=== PATIENT | female | born 1940 | race Caucasian/White ===

== ENCOUNTER 2019-01-15 06:56 | Inpatient (IN) ==
[2018-12-08 13:11] LABS: Basophils # (auto) 0.03 K/uL (0-0.2); Basophils % (auto) 0.6 %; Eosinophils # (auto) 0.29 K/uL (0-0.5); Eosinophils % (auto) 5.7 %; Hematocrit (blood only) 34.4 % (37-47); Hemoglobin 11.5 g/dL (12.0-16.0); Lymphocytes # (auto) 0.88 K/uL (1.2-3.4); Lymphocytes % (auto) 17.3 %; Mean Corpuscular Hemoglobin 30.3 pg (25-34); Mean Corpuscular Hgb Conc 33.4 g/dL (32-36); Mean Corpuscular Volume 90.5 fL (80-100); Mean Platelet Volume 11.1 fL (7.4-10.4); Monocytes # (auto) 0.49 K/uL (0.11-0.59); Monocytes % (auto) 9.6 %; Neutrophils % (auto) 66.8 %; Platelet Count 173 K/uL (130-400); RDW Coefficient of Variation 13.3 % (11.5-14.5); RDW Standard Deviation 43.8 fL (36.4-46.3); White Blood Count 5.09 K/uL (4.8-10.8)
[2018-12-08 13:25] LABS: Partial Thromboplastin Ratio 0.9; Partial Thromboplastin Time 24.2 Seconds (21.0-31.0); Prothrombin Time 10.4 Seconds (9.0-12.0)
[2018-12-08 13:52] LABS: BUN Creatinine Ratio 19.6 (10-20); Blood Urea Nitrogen 15 mg/dl (7-18); Calcium 9.5 mg/dl (8.5-10.1); Carbon Dioxide 25 mmol/L (21-32); Chloride 108 mmol/L (98-107); Est GFR (African American) 83.2; Est GFR (Non-African American) 71.8; Glucose 88 mg/dl (70-99); Potassium 3.6 mmol/L (3.5-5.1); Sodium 141 mmol/L (136-145)
[2018-12-08 14:38] LABS: Appearance Urine Clear (Clear); Bilirubin Urine Negative (Negative); Blood Urine Negative (Negative); Color Urine Dark Yellow; Glucose Urine UA Negative (Negative); Ketones Urine Negative (Negative); Leukocyte Esterase Urine Negative (Negative); Nitrite Urine Negative (Negative); Protein Urine Negative (Negative); Specific Gravity Urine 1.018 (1.000-1.030); Urobilinogen Urine Negative (Negative)
--- NOTE | 2018-12-28 10:31 | Anesthesiology Consultation ---
Date of Service December 28, 2018 Assessment & Plan (1) Encounter for pre-operative examination: Chart Review Chart Review: Acceptable Risk for Surgery and Patient NOT seen in Pre Admission Testing Consults Requested none History Surgery Operation Date: 01/15/19 10:25 Proposed Procedures p L4-L5 Decompression and Fusion, Possible L5-S1, Spinal Cord Mointoring - Inder Burrows DO Height/Weight Height: 5 ft Weight: 72.575 kg Allergies Allergy/AdvReac Type Severity Reaction Status Date / Time No Known Allergies Allergy Verified 12/25/18 08:32 Medications Home Medications Medication Instructions Recorded Confirmed Last Taken anastrozole 1 mg PO QAM 12/25/18 12/25/18 Unknown calcium carbonate-vitamin D3 1 tab PO QPM 12/25/18 12/25/18 Unknown [Calcium 600 + D(3)] cholecalciferol (vitamin D3) 1,000 unit PO QPM 12/25/18 12/25/18 Unknown [Vitamin D3] denosumab [Prolia] 60 mg SUBCUT UD 12/25/18 12/25/18 Unknown ferrous sulfate 325 mg PO QPM 12/25/18 12/25/18 Unknown ibuprofen-famotidine [Duexis] 1 tab PO BID 12/25/18 12/25/18 Unknown levothyroxine [Synthroid] 88 mcg PO QAM 12/25/18 12/25/18 12/25/18 multivitamin 1 cap PO QPM 12/25/18 12/25/18 Unknown omega 5-sby-dqp-fish oil [Fish Oil] 1 cap PO QPM 12/25/18 12/25/18 Unknown rosuvastatin [Crestor] 5 mg PO HS 12/25/18 12/25/18 Unknown vitamin B complex 1 cap PO QPM 12/25/18 12/25/18 Unknown Past Medical History Medical History Age related osteoporosis Arthritis Family history of reaction to anesthesia BROTHER - TROUBLE WITH INTUBATION High cholesterol History of breast cancer RIGHT Hypothyroid Pinched nerve L4-5 Spinal stenosis Past Family History Family History Brother Family history of reaction to anesthesia Son Family history of diabetes mellitus Other Family history of colon cancer Family history of colon cancer in father Past Surgical History Surgical History History of colonoscopy History of foot surgery RIGHT, PLATE AND 5 SCREWS History of kyphoplasty History of left cataract surgery History of lumpectomy RIGHT, WITH LYMPH NODES History of right cataract surgery Social History Smoking Status: Never smoker Do You Dip or Chew Tobacco: No Hx Alcohol Use: No Hx Substance Use: No substance use type: does not use Testing Laboratory Results 12/08/18 12:35 12/08/18 12:35 PT 10.4 Seconds (9.0-12.0) 12/08/18 12:35 INR 1.0 (0.9-1.1) 12/08/18 12:35 APTT 24.2 Seconds (21.0-31.0) 12/08/18 12:35 Urine Color Dark Yellow 12/08/18 12:35 Urine Appearance Clear (Clear) 12/08/18 12:35 Urine pH 5.0 (4.5-7.5) 12/08/18 12:35 Ur Specific [place] 1.018 (1.000-1.030) 12/08/18 12:35 Urine Protein Negative (Negative) 12/08/18 12:35 Urine Glucose (UA) Negative (Negative) 12/08/18 12:35 Urine Ketones Negative (Negative) 12/08/18 12:35 Urine Nitrite Negative (Negative) 12/08/18 12:35 Ur Leukocyte Esterase Negative (Negative) 12/08/18 12:35 Blood Type A Positive 12/08/18 12:34 Antibody Screen NEGATIVE 12/08/18 12:34 Electrocardiogram Date: 12/08/18 Findings: + NSR @ (72bpm) Chest X-Ray Date: 12/08/18 Findings: + NAD
[~2019-01-15 06:56] MED LIST: ACETAMINOPHEN 500 MG TAB PO SCH; CEFAZOLIN 1000MG 1,000 MG/7.5 ML SYR IV SCH; CeleBREX 200 MG CAP PO SCH; GABAPENTIN 300 MG CAP PO SCH; LR 15ML/HR IV SCH
[2019-01-15] MEDS ORDERED: HYDROmorphone INJ 2 MG/ML SYR/VIAL ONE ×2 (08:30→12:22)
[2019-01-15] MEDS ORDERED: fentaNYL citrate 100 MCG/2 ML VIAL ONE ×5 (08:30→11:21)
[2019-01-15] MEDS ORDERED: NEOSTIGMINE METHYLSULFATE 1 MG/ML 10ML VIAL ONE (08:35)
[2019-01-15] MEDS ORDERED: ONDANSETRON INJ 2 MG/ML 2 ML VIAL ONE (08:35)
[2019-01-15] MEDS ORDERED: DEXAMETHASONE SOD INJ 4 MG/ML VIAL ONE (08:35)
[2019-01-15] MEDS ORDERED: ROCURONIUM BROMIDE 10 MG/ML 5 ML VIAL ONE (08:35)
[2019-01-15] MEDS ORDERED: LIDOCAINE HCL 2% 2 ML VIAL/AMP(20MG/ML) INFIL ONE (08:35)
[2019-01-15] MEDS ORDERED: GLYCOPYRROLATE 0.2 MG/ML VIAL ONE (08:35)
[2019-01-15] MEDS ORDERED: PROPOFOL IV EMULSION 10 MG/ML 20 ML VIAL IV ONE (08:35)
[2019-01-15] MEDS ORDERED: PHENYLEPHRINE 100MCG/ML 5ML SYR IV PRN (08:42)
[2019-01-15] MEDS ORDERED: HYDROmorphone INJ 1 MG/ML SYRINGE IV PRN ×2 (08:42→15:48)
[2019-01-15] MEDS ORDERED: ePHEDrine sulfate 50 MG/ML AMP IV PRN (08:42)
[2019-01-15] MEDS ORDERED: ONDANSETRON INJ 2 MG/ML 2 ML VIAL IV PRN (08:42)
[2019-01-15] MEDS ORDERED: ATROPINE SULFATE 0.1 MG/ML 10ML SYR IV PRN (08:42)
[2019-01-15] MEDS ORDERED: LABETALOL HCL IV 5 MG/ML 20ML IV PRN (08:42)
--- NOTE | 2019-01-15 09:28 | History & Physical Bridge Note ---
Date of Service January 15, 2019 History & Physical Bridge Note I have examined the patient, reviewed the History & Physical and in the interval since the performance of the History & Physical I have noted the following changes of clinical significance: no changes noted
--- NOTE | 2019-01-15 09:30 | History & Physical Report ---
Date of Service January 15, 2019 Assessment & Plan (1) Spinal stenosis, lumbar region with neurogenic claudication: L4-L5 decompression and fusion possible L5-S1 Present on Admission?: Yes History of Present Illness Chief Complaint: Back and leg pain Primary Care Provider: NO PCP This is an 78-year-old female who presents with chronic persistent back and bilateral leg pain. After failing extensive course of nonoperative care she is here for surgical intervention. Allergies Allergy/AdvReac Type Severity Reaction Status Date / Time No Known Allergies Allergy Verified 01/15/19 08:09 Home Medications Home Medications Medication Instructions Recorded Confirmed Type anastrozole 1 mg PO QAM 12/25/18 01/15/19 History calcium carbonate-vitamin D3 1 tab PO QPM 12/25/18 01/15/19 History [Calcium 600 + D(3)] cholecalciferol (vitamin D3) 1,000 unit PO QPM 12/25/18 01/15/19 History [Vitamin D3] denosumab [Prolia] 60 mg SUBCUT UD 12/25/18 01/15/19 History ferrous sulfate 325 mg PO QPM 12/25/18 01/15/19 History ibuprofen-famotidine [Duexis] 1 tab PO BID 12/25/18 01/15/19 History levothyroxine [Synthroid] 88 mcg PO QAM 12/25/18 12/25/18 History multivitamin 1 cap PO QPM 12/25/18 01/15/19 History omega 4-cri-gft-fish oil [Fish Oil] 1 cap PO QPM 12/25/18 01/15/19 History rosuvastatin [Crestor] 5 mg PO HS 12/25/18 01/15/19 History vitamin B complex 1 cap PO QPM 12/25/18 01/15/19 History Past Med/Surg History Medical History Age related osteoporosis Arthritis High cholesterol History of breast cancer RIGHT Hypothyroid Pinched nerve L4-5 Spinal stenosis Surgical History Family history of reaction to anesthesia BROTHER - TROUBLE WITH INTUBATION History of colonoscopy History of foot surgery RIGHT, PLATE AND 5 SCREWS History of kyphoplasty History of left cataract surgery History of lumpectomy RIGHT, WITH LYMPH NODES History of right cataract surgery Family History Brother Family history of reaction to anesthesia Son Family history of diabetes mellitus Other Family history of colon cancer Family history of colon cancer in father Social History Preferred Language: Mauritanian Communication Ability: Effective Vehicle Cost Engineer Required: No Beliefs That Will Affect Care: None Current Living Situation: Spouse Other Information That Helps Us Care for You: No Feels Safe at Home: Yes Smoking Status: Never smoker Do You Dip or Chew Tobacco: No ; Hx Alcohol Use: No Hx Substance Use: No Physical Exam Physical Exam: Patient is alert and oriented neurologically intact. Results & Data Vital Signs (Past 12 Hours) Vital Signs Temp Pulse Resp BP Pulse Ox 01/15/19 08:20 36.8 C 75 18 185/78 H 98
[2019-01-15] MEDS ORDERED: BACITRACIN INJ 50,000 UNIT VIAL ONE (09:45)
[2019-01-15] MEDS ORDERED: EPINEPHrine INJ 1 MG/ML AMP ONE (09:48)
[2019-01-15] MEDS ORDERED: BUPIVACAINE 0.5 % 5 MG/1 ML MPF 30ML VIAL ONE (09:48)
[2019-01-15] MEDS ORDERED: BUPIVACAINE/EPINEPHRINE 0.5% MPF 1:200,000 30 ML VIAL ONE (09:55)
[2019-01-15] MEDS ORDERED: SUGAMMADEX SODIUM 200 MG/2 ML VIAL IV ONE (11:35)
[2019-01-15] MEDS ORDERED: BUPIVACAINE/EPINEPHRINE 0.5% MPF 1:200,000 10 ML VIAL INJ PRN (11:48)
[2019-01-15] MEDS ORDERED: FLOSEAL HEMOSTATIC MATRIX 10ML TOP ONE (11:53)
[2019-01-15] MEDS ORDERED: PHENYLEPHRINE 100MCG/ML 5ML SYR ONE (11:57)
[2019-01-15] MEDS ORDERED: PHENYLEPHRINE HCL 10 MG/ML VIAL ONE (11:57)
[2019-01-15] MEDS ORDERED: KETOROLAC 30 MG/ML VIAL ONE (11:57)
[2019-01-15] MEDS ORDERED: ePHEDrine sulfate 50 MG/ML AMP ONE (11:57)
[2019-01-15] MEDS ORDERED: ePHEDrine sulfate 50 MG/ML SYR ONE (11:57)
--- NOTE | 2019-01-15 12:00 | Operative Report ---
Post Operative Report Pre & Post Diagnosis Operation Date: 01/15/19 09:55 Pre-Op Diagnosis: Spondyloslisthesis, Lumbar Region with neurogenic claudication Post-Op Diagnosis: Same I identified the patient and participated in the time-out.: Yes Procedure Operation Date: 01/15/19 09:55 Actual Procedures #1 lumbar decompression with bilateral medial facetectomies and foraminotomies L3-4 L4-5. #2 posterior spinal fusion L4-5 per #3 placement posterior instrumentation L4-5. #4 interbody fusion L4-5 per #5 placement of peek cage 12 x 22 mm L4-5 per #6 placement of locally harvested morselized autograft in the posterior lateral gutters. #7 placement infuse collagen sponge master graft in the posterior lateral gutters and ostial amp and interbody space. Surgeon Inder Burrows, DO Portal Developer Ky Boogie Estimated Blood Loss 175 Findings See Below Patient is forefoot 11 inches tall weighing over 74 kg with a BMI in excess of 33. The patient's body habitus did add significant technical difficulty adding at least 40% increase in operative time. Specimens None Indications Patient presents with significant back and leg pain after failing extensive course of nonoperative care is here for the above-mentioned procedure. Description of Procedure Patient was met with identified and informed consent obtained. Patient was then taken to the operative suite underwent intubation placed in the prone position on the Srikanth table on top of the Andrae frame. All bony prominences well- padded eyes inspected to ensure no external pressure placed upon the peer at this point the lumbar spine was prepped and draped in normal sterile fashion. Sharp dissection with the assistance of Bovie cautery was performed down to and exposing the lamina and transverse process of L4 and L5 bilaterally. From a caudal to cephalad fashion complete laminectomy of L4 partial laminectomy of L3 was performed including bilateral medial facetectomies and foraminotomies addressing severe stenosis as well as a facet cyst on the right. After complete decompression pedicle screws were placed in L4 and L5 bilaterally with assistance of fluoroscopy the appropriate size tyrell placed. By way of a transforaminal approach on the right a complete discectomy was performed en dplates curetted to subcortical bleeding bone and a 12 x 22 mm peek cage filled with osteo-amp bone graft tapped in position. The rods were then locked in final position bilaterally. Transverse processes of L4 and L5 bur to subcortical bleeding bone. Infuse collagen sponge mass graft and local autograft placed in the posterior lateral gutters. 15 round NIC drain inserted. Incision was then closed with 1 Vicryl in the fascia 2-0 Vicryl substantially and 4 Monocryl for final skin closure. Steri-Strip sterile dressings placed. Patient will continue PACU stable condition. Please note Ky Boogie present all the entire procedure involved in patient positioning complex portions of the surgery and final skin closure. Lastly spinal cord monitoring was utilized that the procedure no changes noted. I attest to the content of the Intraoperative Record and any orders documented therein. Any exceptions are noted below.
[2019-01-15] MEDS: fentaNYL citrate 100 MCG/2 ML VIAL IV PRN ×2 (12:39→12:44)
--- NOTE | 2019-01-15 12:52 | Anesthesiology Progress Note ---
Date of Service January 15, 2019 Anesthesia Post Procedure Vital Signs Vital Signs: Temp Pulse Pulse Resp BP BP Pulse Ox 01/15/19 12:18 36.4 C L 63 14 125/54 L 99 01/15/19 08:20 36.8 C 75 18 185/78 H 98 Pain Intensity Right Leg: Pain Intensity: 2 Transfer of Care Handoff Completed per policy Notes Mental Status: alert / awake / arousable Patient Amnestic to Procedure: Yes Nausea / Vomiting: adequately controlled Pain: adequately controlled Airway Patency, RR, SpO2: stable & adequate BP & HR: stable & adequate Hydration State: stable & adequate Anesthetic Complications: no major complications apparent and Pt Satisfied with anesthetic care
--- NOTE | 2019-01-15 12:53 | Fluoroscopy Report ---
FL lumbar spine 2-3V HISTORY: 78 years-old Female L4-L5 DECOMPRESSION AND FUSION POSSIBLE L5-S1 status post decompression and fusion at L4-L5. COMPARISON: None available TECHNIQUE: 2 spot fluoroscopic images of the lumbar spine were obtained utilizing 18.5 seconds fluoro scopy time FINDINGS: Laminectomy with posterior interbody tyrell and screw fusion and discectomy changes at L4-L5. Satisfacto ry alignment. IMPRESSION: Fluoroscopic assistance as above The above report was generated using voice recognition software. It may contain grammatical, syntax o r spelling errors. Electronically signed by: Darin Childers M.D. 01/15/2019 12:51 PM
[2019-01-15] MEDS ORDERED: ESMOLOL HCL INJ 10 MG/ML 10ML VIAL IV ONE (13:02)
--- NOTE | 2019-01-15 14:41 | Internal Medicine Consult Note ---
Date of Consultation January 15, 2019 Assessment & Plan (1) Spinal stenosis, lumbar region with neurogenic claudication: (2) Status post lumbar spine surgery for decompression of spinal cord: -post-op spinal lumbar decompression and fusion by Dr. Burrows on 01/15/19 (#1 lumbar decompression with bilateral medial facetectomies and foraminotomies L3-4 L4-5. #2 posterior spinal fusion L4-5 per #3 placement posterior instrumentation L4-5. #4 interbody fusion L4-5 per #5 placement of peek cage 12 x 22 mm L4-5 per #6 placement of locally harvested morselized autograft in the posterior lateral gutters. #7 placement infuse collagen sponge master graft in the posterior lateral gutters and ostial amp and interbody space.) -NIC drain management as per orthopedics -monitor CBC -PT/OT -pain medications and antiemetics prn (3) Blurred vision: -This is a 78 year old female with history of Spondyloslisthesis, Lumbar Region with neurogenic claudication and post-op spinal lumbar decompression and fusion and while in the PACU had complains of blurred vision when looking to the right. When she looked to her environment to the right. this was when she had blurred vision after waking from the anesthesia -Patient seen and examined in the PACU by hospitalist. Pupils equal and reactive to light. Visual field testing was performed by hospitalist at bedside. Patient did not report of blurred vision while tracking the fingers of the hospitalist physician. When she looked to her right she feels that visual clarity is improving. Discussed with anesthesiologist at bedside, Dr. Boone that patient's recent anesthesia medications and anesthesia medication included phenylephrine and high dose of Neostigmine. Patient appears to have cranial nerve function intact. Pupils equal and reactive to light and accomodation. denies feeling dizzy or lightheadedness. No vomiting. No nausea -symptoms may be medication related -will continue to continue to monitor the patient closely -likely when further removed from surgical/anesthesia medications that patient's symptoms will continue to improve (4) Dyslipidemia: -recently started on crestor 5 mg qhs as outpatient -continue crestor (5) Hypothyroidism: -continue levothyroxine (6) History of breast cancer: -continue home dose anastrozole DVT prophylaxis: SCDs Ze [phone] is anesthesiologist Patient reports that her son is her primary care doctor My colleague: Dr. Ag will be following the patient starting on 01/16/19 History of Present Illness Reason for Consultation: Spondyloslisthesis, Lumbar Region with neurogenic claudication Post-op spinal lumbar decompression and fusion Blurred Vision Requesting Physician: Inder Burrows DO Attending Physician: Inder Burrows DO History of Present Illness This is a 78 year old female with history of Spondyloslisthesis, Lumbar Region with neurogenic claudication and post-op spinal lumbar decompression and fusion and while in the PACU had complains of blurred vision when looking to the right. When she looked to her environment to the right. this was when she had blurred v ision after waking from the anesthesia Patient seen and examined in the PACU by hospitalist. Pupils equal and reactive to light. Visual field testing was performed by hospitalist at bedside. Patient did not report of blurred vision while tracking the fingers of the hospitalist physician. When she looked to her right she feels that visual clarity is improving. Discussed with anesthesiologist at bedside, Dr. Boone that patient's recent anesthesia medications and anesthesia medication included phenylephrine and high dose of Neostigmine. Patient appears to have cranial nerve function intact. Pupils equal and reactive to light and accomodation. denies feeling dizzy or lightheadedness. No vomiting. No nausea Patient breathing on supplementary oxygen. Denies supplementary oxygen use at home. Denies chest pain. able to move upper extremities with 5/5 motor strength. Legs in SCDs. able to raise both legs slightly above the bed with some effort. NIC drain to the back with serosanguinous fluid Family History: mother with juan miguel history of atrial fibrillation and stroke Allergies: denies Allergies Allergy/AdvReac Type Severity Reaction Status Date / Time No Known Allergies Allergy Verified 01/15/19 08:09 Home Medications Home Medications Medication Instructions Recorded Confirmed Type anastrozole 1 mg PO QAM 12/25/18 01/15/19 History calcium carbonate-vitamin D3 1 tab PO QPM 12/25/18 01/15/19 History [Calcium 600 + D(3)] cholecalciferol (vitamin D3) 1,000 unit PO QPM 12/25/18 01/15/19 History [Vitamin D3] denosumab [Prolia] 60 mg SUBCUT UD 12/25/18 01/15/19 History ferrous sulfate 325 mg PO QPM 12/25/18 01/15/19 History ibuprofen-famotidine [Duexis] 1 tab PO BID 12/25/18 01/15/19 History levothyroxine [Synthroid] 88 mcg PO QAM 12/25/18 12/25/18 History multivitamin 1 cap PO QPM 12/25/18 01/15/19 History omega 6-fek-urp-fish oil [Fish Oil] 1 cap PO QPM 12/25/18 01/15/19 History rosuvastatin [Crestor] 5 mg PO HS 12/25/18 01/15/19 History vitamin B complex 1 cap PO QPM 12/25/18 01/15/19 History Patient History Medical History Age related osteoporosis Arthritis High cholesterol History of breast cancer RIGHT Hypothyroid Pinched nerve L4-5 Spinal stenosis Surgical History Family history of reaction to anesthesia BROTHER - TROUBLE WITH INTUBATION History of colonoscopy History of foot surgery RIGHT, PLATE AND 5 SCREWS History of kyphoplasty History of left cataract surgery History of lumpectomy RIGHT, WITH LYMPH NODES History of right cataract surgery Family History Brother Family history of reaction to anesthesia Son Family history of diabetes mellitus Other Family history of colon cancer Family history of colon cancer in father Social History Preferred Language: Dominican Communication Ability: Effective Matting 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 Required: No Beliefs That Will Affect Care: None Current Living Situation: Spouse Other Information That Helps Us Care for You: No Feels Safe at Home: Yes Smoking Status: Never smoker Do You Dip or Chew Tobacco: No ; Hx Alcohol Use: No Hx Substance Use: No Review of Systems Review of Systems: All systems reviewed & are unremarkable except as noted in HPI & below Physical Exam Constitutional: WD/WN, vitals as above comfortable ENMT: external ear and nose normal, oropharynx normal Neck: normal visual inspection Respiratory: normal respiratory effort, lungs clear to auscultation Cardiovascular: Rate/Rhythm: regular rate and regular rhythm Gastrointestinal (Abdomen): normal bowel sounds, soft, nontender, no hepatosplenomegaly Musculoskeletal: Head/Neck/Chest: normocephalic and head atraumatic Skin: Legs in SCDs. NIC drain to the back with serosanguinous fluid Neurologic: PERRL, EOMI, accommodation nl, no face palsy, no dysarthria CN's II-XI intact bilaterally able to move upper extremities with 5/5 motor strength. able to raise both legs slightly above the bed with some effort. Psychiatric: A+Ox3, euthymic affect Results & Data Vital Signs (Past 12 Hours) Vital Signs Temp Pulse Pulse Resp BP BP Pulse Ox 01/15/19 14:25 78 19 123/49 L 96 01/15/19 14:10 36.4 C L 87 19 122/54 L 96 01/15/19 13:55 78 14 114/50 L 95 01/15/19 13:45 84 14 116/52 L 95 01/15/19 13:35 78 14 119/62 95 01/15/19 13:25 76 14 130/44 L 95 01/15/19 13:15 36.2 C L 75 16 119/40 L 95 01/15/19 13:05 70 16 125/46 L 95 01/15/19 12:55 78 16 126/41 L 95 01/15/19 12:45 76 16 119/41 L 95 01/15/19 12:35 83 16 124/53 L 98 01/15/19 12:25 81 16 131/61 99 01/15/19 12:18 36.4 C L 63 14 125/54 L 99 01/15/19 08:20 36.8 C 75 18 185/78 H 98
[2019-01-15] MEDS ORDERED: HYDROmorphone INJ 0.5 MG/0.5 ML SYR ONE (14:51)
[2019-01-15] MEDS ORDERED: SOD PHOSPHATE/SOD BIPHOSPHATE ENEMA 132 ML BTL PR PRN (15:48)
[2019-01-15] MEDS ORDERED: DO NOT ADMINISTER PNEUMOCOCCAL VACCINE PRN (15:48)
[2019-01-15] MEDS ORDERED: PROMETHAZINE HCL 12.5 MG in SODIUM CHLORIDE 0.9% 50 ML IV PRN (15:48)
[2019-01-15] MEDS ORDERED: METOCLOPRAMIDE HCL INJ 5 MG/ML 2 ML VIAL IV PRN (15:48)
[2019-01-15] MEDS ORDERED: DO NOT ADMINISTER FLU VACCINE PRN (15:48)
[2019-01-15] MEDS ORDERED: FAMOTIDINE 20 MG TAB PO PRN (15:48)
[2019-01-15] MEDS ORDERED: ALUMINUM/MAGNESIUM SUSP 30 ML UDC PO PRN (15:48)
[2019-01-15] MEDS ORDERED: NALOXONE HCL 0.4 MG/1 ML VIAL/CARP IV PRN (15:48)
[2019-01-15] MEDS ORDERED: MAGNESIUM HYDROXIDE SUSP 30 ML UDC PO PRN (15:48)
[2019-01-15] MEDS ORDERED: BISACODYL 10 MG SUPP PR PRN (15:48)
[2019-01-15] MEDS ORDERED: LORazepam 0.5 MG/1 ML VIAL IV PRN (15:48)
[2019-01-15] MEDS ORDERED: ONDANSETRON 4 MG OD TAB PO PRN (15:48)
[2019-01-15] MEDS ORDERED: ACETAMINOPHEN 1,000 MG/100 ML VIAL IV PRN (15:48)
[2019-01-15] MEDS ORDERED: LORazepam 0.5 MG TAB PO PRN (15:48)
[2019-01-15] MEDS ORDERED: TRAMADOL HCL 50 MG TABLET PO PRN (15:48)
[2019-01-15] MEDS: OXYCODONE HCL IR 5 MG TAB (IMMEDIATE RELEASE) PO PRN ×2 (16:46→20:47)
[2019-01-15] MEDS: ACETAMINOPHEN 500 MG TAB PO PRN (16:46)
[2019-01-15] MEDS: CEFAZOLIN 2000MG 2,000 MG/15 ML SYR IV SCH (20:05)
[2019-01-15] MEDS: SODIUM CHLORIDE 0.9% 1000ML 1,000 ML IV SCH (20:06)
[2019-01-15] MEDS: CALCIUM 600MG + VIT D 400 IU TAB PO SCH (20:11)
[2019-01-15] MEDS: DOCUSATE SODIUM/SENNA 50/8.6MG TAB PO SCH (20:11)
[2019-01-15] MEDS: ROSUVASTATIN CALCIUM 5 MG TAB PO SCH (20:12)
[2019-01-15] MEDS: VITAMIN B COMPLEX TAB PO SCH (20:12)
[2019-01-15] MEDS: OMEGA-3 (PURIFIED FISH OIL) 1 GM CAP PO SCH (20:12)
[2019-01-15] MEDS: MULTIVITAMIN TAB PO SCH (20:12)
[2019-01-15] MEDS: FERROUS SULFATE 325 MG TAB PO SCH (20:12)
[2019-01-15] MEDS: CHOLECALCIFEROL 1,000 UNITS TAB PO SCH (20:12)
[2019-01-15] MEDS: HYDROmorphone INJ 0.5 MG/0.5 ML SYR IV PRN (23:55)
[2019-01-16] MEDS: CEFAZOLIN 2000MG 2,000 MG/15 ML SYR IV SCH (03:11)
[2019-01-16 05:29] LABS: Hematocrit (blood only) 26.6 % (37-47); Immature Granulocytes # (auto) 0.02 K/uL (0.00-0.02); Immature Granulocytes % (auto) 0.2 %; Lymphocytes # (auto) 0.47 K/uL (1.2-3.4); Lymphocytes % (auto) 5.1 %; Mean Corpuscular Hemoglobin 30.8 pg (25-34); Mean Corpuscular Hgb Conc 33.8 g/dL (32-36); Mean Corpuscular Volume 91.1 fL (80-100); Monocytes # (auto) 0.53 K/uL (0.11-0.59); Monocytes % (auto) 5.8 %; Neutrophils # (auto) 8.19 K/uL (1.4-6.5); Neutrophils % (auto) 88.9 %; Platelet Count 132 K/uL (130-400); RDW Coefficient of Variation 13.4 % (11.5-14.5); RDW Standard Deviation 44.7 fL (36.4-46.3); Red Blood Count 2.92 M/uL (4.2-5.4); White Blood Count 9.21 K/uL (4.8-10.8)
[2019-01-16] MEDS: LEVOTHYROXINE SODIUM 88 MCG TABLET PO SCH (06:01)
[2019-01-16 06:04] LABS: BUN Creatinine Ratio 15.9 (10-20); Calcium 7.8 mg/dl (8.5-10.1); Creatinine Clr Calc Pharmacy 64.7 ml/min; Est GFR (African American) 99.2; Est GFR (Non-African American) 85.6; Magnesium 1.8 mg/dl (1.8-2.4); Potassium 3.9 mmol/L (3.5-5.1)
[2019-01-16] MEDS: POLYETHYLENE (MIRALAX) 17 GM PACK PO SCH ×3 (06:06→17:22)
[2019-01-16] MEDS: OXYCODONE HCL IR 5 MG TAB (IMMEDIATE RELEASE) PO PRN ×3 (06:10→20:23)
[2019-01-16] MEDS: ANASTROZOLE 1 MG TAB PO SCH (06:13)
[2019-01-16] MEDS: SODIUM CHLORIDE 0.9% 1000ML 1,000 ML IV SCH (06:15)
--- NOTE | 2019-01-16 09:46 | Orthopedic Progress Note ---
Date of Service January 16, 2019 Assessment & Plan (1) Spinal stenosis, lumbar region with neurogenic claudication: This time will initiate physical therapy occupational therapy today. Monitor her NIC output. Anticipate discharge to rehab in the [facility] area hopefully Friday. Present on Admission?: Yes Subjective Back pain is controlled leg symptoms markedly improved. Physical Exam Physical Exam: On exam patient is in the chair at the bedside. She is good strength testing. Appears comfortable. Results & Data Vital Signs (Past 12 Hours) Vital Signs Temp Pulse Pulse Resp BP Pulse Ox 01/16/19 07:55 36.5 C 89 20 95/55 L 94 01/16/19 03:11 36.7 C 89 18 104/62 92 01/16/19 00:00 36.6 C 85 16 114/54 L 94
[2019-01-16] MEDS: ACETAMINOPHEN 500 MG TAB PO PRN ×2 (12:07→20:24)
[2019-01-16] MEDS: DOCUSATE SODIUM/SENNA 50/8.6MG TAB PO SCH (17:22)
--- NOTE | 2019-01-16 19:21 | Hospitalist Progress Note ---
Date of Service January 16, 2019 Assessment & Plan (1) Status post lumbar spine surgery for decompression of spinal cord: POD # 1. Doing well. (2) Blurred vision: Transient, resolved. Possibly related to anesthetic meds. (3) Hypothyroidism: Continue levothyroxine. (4) DVT prophylaxis: Per Ortho protocol. (5) Encounter for consultation: Thank you for this consultation. We will follow the patient with you during their hospital stay. My cell # is [phone]. You can reach a member of the [facility] Medicine Team 07/10 via pager @ [phone]. Subjective Recheck for medical management. Patient seen in their room around 1220. Doing well postoperatively. Had some blurred vision immediately postop- resolved. No chest pain. No cough, SOB. No nausea, vomiting. No passing any flatus or stool yet. Still has urinary catheter. Ambulating. Performing incentive spirometry. Having some postop pain. Review of Systems: As noted above. Physical Exam Constitutional: no acute distress Respiratory: no respiratory distress Auscultation: lungs clear to auscultation bilaterally Cardiovascular: Rate/Rhythm: regular rate and regular rhythm Heart Sounds: no gallop, no murmur and no cardiac rub Vessels: no JVD Extremities: + edema (chronic-appearing ankle edema); no calf tenderness Gastrointestinal (Abdomen): normal bowel sounds, soft, nontender, no hepatosplenomegaly Musculoskeletal: TEDS applied Skin: no rashes, warm and dry Psychiatric: Orientation: alert and oriented x 3 Genitourinary: Nguyen cath Results & Data Vital Signs (Past 12 Hours) Vital Signs Temp Pulse Pulse Resp BP Pulse Ox 01/16/19 15:58 37.0 C 84 17 94/57 L 98 01/16/19 11:42 36.8 C 75 18 100/60 95 01/16/19 07:55 36.5 C 89 20 95/55 L 94 Laboratory Results 01/16/19 05:11 01/16/19 05:11
[2019-01-16] MEDS: CALCIUM 600MG + VIT D 400 IU TAB PO SCH (20:26)
[2019-01-16] MEDS: ROSUVASTATIN CALCIUM 5 MG TAB PO SCH (20:26)
[2019-01-16] MEDS: VITAMIN B COMPLEX TAB PO SCH (20:26)
[2019-01-16] MEDS: CHOLECALCIFEROL 1,000 UNITS TAB PO SCH (20:26)
[2019-01-16] MEDS: MULTIVITAMIN TAB PO SCH (20:26)
[2019-01-16] MEDS: OMEGA-3 (PURIFIED FISH OIL) 1 GM CAP PO SCH (20:26)
[2019-01-16] MEDS: FERROUS SULFATE 325 MG TAB PO SCH (20:27)
[2019-01-17] MEDS: POLYETHYLENE (MIRALAX) 17 GM PACK PO SCH ×4 (00:26→19:04)
[2019-01-17] MEDS: OXYCODONE HCL IR 5 MG TAB (IMMEDIATE RELEASE) PO PRN ×4 (00:26→23:01)
[2019-01-17] MEDS: LEVOTHYROXINE SODIUM 88 MCG TABLET PO SCH (06:03)
[2019-01-17] MEDS: ANASTROZOLE 1 MG TAB PO SCH (06:06)
[2019-01-17] MEDS: ACETAMINOPHEN 500 MG TAB PO PRN ×3 (07:27→23:01)
--- NOTE | 2019-01-17 09:01 | Orthopedic Progress Note ---
Date of Service January 17, 2019 Assessment & Plan (1) Spinal stenosis, lumbar region with neurogenic claudication: Patient is doing well postoperative day #2. We will continue with GI DVT prophylaxis as well as pain control. We will continue mobilization efforts with physical therapy. We will see how she does over the next 24 hours and hopefully get her to [facility] facility tomorrow. Subjective Patient is doing well postoperative day #2. She still has pain in the back but the leg feels much better. She is not having any radicular complaints at this point. She is tolerating p.o. intake well. She denies any other numbness, tingling, or paresthesias. Physical Exam Physical Exam: On exam she is alert and oriented. Her dressing is clean dry and intact. NIC drain is in place and is holding suction. Her strength and sensation are both intact abdomen soft nontender calves are supple and nontender. Results & Data Vital Signs (Past 12 Hours) Vital Signs Temp Pulse Resp BP Pulse Ox 01/17/19 07:56 36.8 C 78 18 106/54 L 96 01/16/19 23:00 36.6 C 71 16 107/65 94
[2019-01-17] MEDS: HYDROmorphone INJ 0.5 MG/0.5 ML SYR IV PRN (14:46)
--- NOTE | 2019-01-17 14:58 | Anesthesiology Progress Note ---
Date of Service January 17, 2019 Anesthesia Post Procedure Vital Signs Vital Signs: Temp Pulse Pulse Resp BP Pulse Ox 01/17/19 07:56 36.8 C 78 18 106/54 L 96 01/16/19 23:00 36.6 C 71 16 107/65 94 01/16/19 15:58 37.0 C 84 17 94/57 L 98 Pain Intensity Right Leg: Pain Intensity: 2 Lower Back: Pain Intensity: 6 Notes Mental Status: alert / awake / arousable Patient Amnestic to Procedure: Yes Nausea / Vomiting: improving with treatment (pt c/o nausea;) Pain: improving with treatment Airway Patency, RR, SpO2: stable & adequate BP & HR: stable & adequate Anesthetic Complications: no major complications apparent
[2019-01-17] MEDS: ONDANSETRON INJ 2 MG/ML 2 ML VIAL IV PRN (16:45)
--- NOTE | 2019-01-17 17:12 | Hospitalist Progress Note ---
Date of Service January 17, 2019 Assessment & Plan (1) Status post lumbar spine surgery for decompression of spinal cord: POD # 2. Doing well. (2) Blurred vision: Transient, resolved. Possibly related to anesthetic meds. (3) Hypothyroidism: Continue levothyroxine. (4) DVT prophylaxis: Per Ortho protocol. (5) Encounter for consultation: Thank you for this consultation. We will follow the patient with you during their hospital stay. My cell # is [phone]. You can reach a member of the [facility] Medicine Team 07/10 via pager @ [phone]. Subjective Recheck for medical management. Patient seen in their room around 1010. Doing well postoperatively. No further blurred vision. No chest pain. No cough, SOB. No nausea, vomiting. Passing flatus, but no stool yet. Nguyen cath removed; voiding without difficulty. Ambulating. Performing incentive spirometry. Still having some postop pain. Review of Systems: As noted above. Physical Exam Constitutional: no acute distress Respiratory: no respiratory distress Auscultation: lungs clear to auscultation bilaterally Cardiovascular: Rate/Rhythm: regular rate and regular rhythm Heart Sounds: no gallop, no murmur and no cardiac rub Vessels: no JVD Extremities: + edema (chronic-appearing ankle edema); no calf tenderness Gastrointestinal (Abdomen): normal bowel sounds, soft, nontender, no hepatosplenomegaly Skin: no rashes, warm and dry Psychiatric: Orientation: alert and oriented x 3 Results & Data Vital Signs (Past 12 Hours) Vital Signs Temp Pulse Resp BP Pulse Ox 01/17/19 15:17 37.1 C 82 17 109/55 L 95 01/17/19 07:56 36.8 C 78 18 106/54 L 96
[2019-01-17] MEDS: MULTIVITAMIN TAB PO SCH (20:52)
[2019-01-17] MEDS: DOCUSATE SODIUM/SENNA 50/8.6MG TAB PO SCH (20:52)
[2019-01-17] MEDS: ROSUVASTATIN CALCIUM 5 MG TAB PO SCH (20:52)
[2019-01-17] MEDS: FERROUS SULFATE 325 MG TAB PO SCH (20:52)
[2019-01-17] MEDS: VITAMIN B COMPLEX TAB PO SCH (20:52)
[2019-01-17] MEDS: CHOLECALCIFEROL 1,000 UNITS TAB PO SCH (20:52)
[2019-01-17] MEDS: OMEGA-3 (PURIFIED FISH OIL) 1 GM CAP PO SCH (20:52)
[2019-01-17] MEDS: CALCIUM 600MG + VIT D 400 IU TAB PO SCH (20:52)
[2019-01-18] MEDS: POLYETHYLENE (MIRALAX) 17 GM PACK PO SCH ×2 (00:29→06:23)
[2019-01-18] MEDS: ACETAMINOPHEN 500 MG TAB PO PRN (06:04)
[2019-01-18] MEDS: OXYCODONE HCL IR 5 MG TAB (IMMEDIATE RELEASE) PO PRN (06:04)
[2019-01-18] MEDS: LEVOTHYROXINE SODIUM 88 MCG TABLET PO SCH (06:05)
[2019-01-18] MEDS: ANASTROZOLE 1 MG TAB PO SCH (08:31)
[2019-01-18] MEDS: ONDANSETRON INJ 2 MG/ML 2 ML VIAL IV PRN (09:28)
[2019-01-18] MEDS ORDERED: Nursing to Pharmacy Communication ONE (10:28)
--- NOTE | 2019-01-18 13:09 | Discharge Summary ---
Date of Service January 18, 2019 Admission HPI Per Admitting Provider This is an 78-year-old female who presents with chronic persistent back and bilateral leg pain. After failing extensive course of nonoperative care she is here for surgical intervention. Principal Diagnosis Lumbar spinal stenosis with neurogenic claudication Discharge Data Allergies Allergy/AdvReac Type Severity Reaction Status Date / Time No Known Allergies Allergy Verified 01/15/19 08:09 Consultations 01/15/19 14:48 Consult Hospitalist Stat 01/15/19 15:06 Consult Hospitalist Routine 01/15/19 15:48 Consult Case Management - Discharge Planning Routine Procedures Performed Operation Date: 01/15/19 09:55 Actual Procedures p L4-L5 Decompression and Fusion, with Spinal Cord Mointoring(Not Applicable) - Inder Burrows DO Ordered Studies 01/15/19 09:55 FL fluoroscopy <1hr Routine FL lumbar spine 2-3V Routine Hospital Course (1) Status post lumbar spine surgery for decompression of spinal cord: Patient underwent lumbar decompression fusion tolerated this well was ta stephanie to the orthopedic floor postoperative. Postop day 1 she was up and in bleeding progressed the postop day 2. Postop day 3 she was seen anterior to strength testing NIC drain decreased probably. Subsequent subsequently discharged to rehab. Discharge orders instructions from the chart for further review. Total Time Total Time Spent Total Time Spent (In Minutes): 20 minutes Discharge Plan Discharge Items Patient Disposition: Transfer Inpatient Rehab Fac Reason For Visit: Spondyloslisthesis, Lumbar Region Discharge Diagnosis: Lumbar spinal stenosis with neurogenic claudication Activity: As commented below Non-emergency contact: Primary Care Provider Call non-emergency contact if: you have any medication questions Follow-up/Referrals: PCP,NO [Primary Care Provider] - Diet: Regular Addtl Attending Provider Instructions: ACTIVITY RECOMMENDATIONS: SELF CARE INSTRUCTIONS AFTER THORACIC/LUMBAR FUSIONS 1. You may walk to your tolerance. It is good exercise for your legs and back. Expect some back and intermittent leg aches and pains. 2. You may perform "counter-top" level activities (make a sandwich, tomas with a project, etc.). 3. No bending or lifting of more than 10 pounds or back twisting of any nature (roll like a log when turning in bed). 4. You may ride in a car for 20-30 minutes at a time. No driving until after your first visit with your doctor. 5. Frequent changes of position and restricting sitting to 30 minutes at a time will help limit the amount of back spasms and stiffness you may experience. 6. You may discontinue the use of ambulatory aids (cane, crutches, etc.) once your strength and confidence allow. 7. You may medical billing clerk the shower and let water strike your incision when you arrive home at least once daily. Do not take a tub bath, sit in a hot tub or go into a swimming pool until after your first recheck in the office. SPECIAL CARE INSTRUCTIONS: VERY IMPORTANT TO READ AND REVIEW A. Your surgical incision has been closed with a cosmetic suture under the skin that will dissolve in about 6 weeks. In 14 days, you can use a pair of clean scissors and cut the suture that is left outside of the skin at the ends of your incision. 1. The small skin tapes can be removed 7 days after surgery if they have not fallen off by that point. 2. You may keep the wound open to air as much as possible to promote healing after post-op day number 5 unless told otherwise by your doctor. 3. If you think the wound looks like it is becoming infected (redness or worsening drainage) and/or you are experiencing fever, chill or worsening back pain and muscle spasms, contact the office so that we may evaluate you as soon as possible. B. Complications are uncommon, but please contact us if you have any signs or symptoms of: 1. wound infection (fever higher than 102.5 degrees F, redness, separation of wound, drainage, or increasing pain from the incision) 2. blood clots in legs (pain, swelling, redness and warmth in legs) 3. urinary tract infection (fever higher than 102.5 degrees F, burning upon urination or increased frequency of urination) 4. nerve problems (inability to walk on your toes or heels, numbness, loss of bowel or bladder control) 5. any other symptoms that concern you C. Please call the office at if you have any concerns or questions about your operation or recovery. D. No smoking! Smoking drastically decreases the chance of a solid fusion. E. Do not take any anti-inflammatory medications (Indocin, Advil, Motrin, Aspirin, Naprosyn, etc.) as these may inhibit the chance of a solid fusion. Tylenol is okay to take for pain. MANAGING PAIN AFTER SPINAL SURGERY 1. Narcotic medication is intended for short-term use and will be provided for surgical pain. Surgical pain usually lasts for a period of 4-6 weeks. Narcotic medication includes Percocet, Vicodin, Darvocet, Tylenol #3 or Lortab. 2. Longer-term pain is more appropriately treated with non-narcotic medication such as Tylenol ES. 3. Muscle spasm is not appropriately treated with narcotics. Muscle relaxers such as Soma, Flexeril or Skelaxin can be used along with Tylenol ES. 4. Remember that we all live with some "aches and pains". This is not unusual or uncommon after an injury or as we get older. a. Back pain is expected and may include muscle spasms for 4 to 6 weeks after surgery. The pain should gradually improve. If the pain worsens for no apparent reason, please contact the office. b. Intermittent leg pain may also be experienced and should not be concerned about unless it worsens for no apparent reason. If so, please contact the office. 5. We will provide appropriate medication within the normal guidelines of their prescribed use. We will also be very cautious and aware of potential abuse and extended duration of patients' medication needs. a. Pain medications are for your comfort and to assist with sleep and rest so that the tissue can heal. They are not provided in order to return to normal activity and should not be used through the day. To do so or worsening pain at night can result from ongoing tissue damage and development of tolerance to the prescribed medicine. 6. Please allow 2-3 days to process refills. Prescriptions will not be mailed but must be picked up at the office. FOLLOW UP VISIT: Keep your scheduled follow-up appointment. Any questions, please call the office at . Pending Studies at Discharge: No Stand-Alone Forms: My [facility] Skilled Items Patient informed of condition?: Yes DNR: No Discharge Level of Care: Acute rehab Communicable Disease: No Discharge Prognosis: Improving Lines: None Urinary Catheter: No Medications and DC Order Prescriptions: New tramadol 50 mg tablet 50 mg PO Q6H PRN (Reason: pain, moderate) Qty: 30 RF: 0 oxycodone 5 mg tablet 5 mg PO Q6H PRN (Reason: pain, severe) Qty: 30 RF: 0 Continued anastrozole 1 mg Tablet 1 mg PO QAM RF: 0 levothyroxine [Synthroid] 88 mcg Tablet 88 mcg PO QAM RF: 0 ferrous sulfate 325 mg (65 mg iron) Tablet 325 mg PO QPM RF: 0 multivitamin Capsule 1 cap PO QPM RF: 0 vitamin B complex Capsule 1 cap PO QPM RF: 0 cholecalciferol (vitamin D3) [Vitamin D3] 1,000 unit Capsule 1,000 unit PO QPM RF: 0 rosuvastatin [Crestor] 5 mg Tablet 5 mg PO HS RF: 0 calcium carbonate-vitamin D3 [Calcium 600 + D(3)] 600 mg(1,500mg) -400 unit Tablet 1 tab PO QPM RF: 0 omega 8-som-esb-fish oil [Fish Oil] 1,000 mg (120 mg-180 mg) Capsule 1 cap PO QPM RF: 0 Duexis 800-26.6 mg Tablet 1 tab PO BID RF: 0 Prolia 60 mg/mL Syringe 60 mg SUBCUT UD RF: 0 Discharge Orders: Discharge Order (Routine); Ordered 01/18/19 Ordered By: Inder Bishop/Other Patient Handouts: DVT Prevent Admission Data Admit Date/Time: 01/15/19 12:04 Attending Provider: Inder Burrows Admit Provider: Inder Burrows Primary Care Provider: PCP,NO Other Providers: Brandyn Law ; Gagan Ag Other Interventions: Discharge Summary Assessment (RN) Last Done: 01/18/19 09:21 DC Date/Time DO NOT enter until pt leaves facility: 01/18/19 12:35
== END 2019-01-18 12:35 | DRG 455 ==
LOC: ASU 06:56 → 3E 12:04